=== PATIENT | female | born 1985 | race Caucasian/White ===

== ENCOUNTER 2019-07-03 08:17 | Emergency (ER) | payer OTHER, MEDICAID ==
[~2019-07-03] VITALS: Ht 160 cm; Wt 81.2 kg
[2019-07-03 10:23] VITALS: BP 115/76
== END 2019-07-03 10:23 | disposition home or self-care (01) ==
LOC: ED 08:17
DX: K42.9 Umbilical hernia without obstruction or gangrene (principal)
CPT/HCPCS: J1885; Q0092